=== PATIENT | female | born 1945 | race Caucasian/White ===

== ENCOUNTER → 2021-03-18 | Outpatient (CLI) | payer OTHER | LOC: HEART CORB 10:16 | DX: I25.10 Atherosclerotic heart disease of native coronary artery without angina pectoris (principal); R07.2 Precordial pain; E78.5 Hyperlipidemia, unspecified; I10 Essential (primary) hypertension; I25.2 Old myocardial infarction; E11.9 Type 2 diabetes mellitus without complications; M81.0 Age-related osteoporosis without current pathological fracture; I25.9 Chronic ischemic heart disease, unspecified; Z86.2 Personal history of diseases of the blood and blood-forming organs and certain disorders involving the immune mechanism; Z87.898 Personal history of other specified conditions | CPT/HCPCS: 78452; A9502; J2785 ==

== ENCOUNTER → 2021-04-24 | Outpatient (CLI) | payer OTHER ==
[2021-04-24 14:19] LABS: RED BLOOD COUNT 4.26 M/UL (4.00-5.10); WHITE BLOOD COUNT 8.7 K/UL (4.5-11.0)
[2021-04-25 11:13] LABS: CALCIUM, SERUM 9.8 mg/dL (8.7-10.3); CREATININE, SERUM 0.9 mg/dL (0.57-1.00)
== END ==
LOC: LAB 13:50
PROVIDERS: Internal Medicine Interventional Cardiology
DX: I25.119 Atherosclerotic heart disease of native coronary artery with unspecified angina pectoris (principal); I10 Essential (primary) hypertension; M81.0 Age-related osteoporosis without current pathological fracture; E11.9 Type 2 diabetes mellitus without complications; R00.2 Palpitations; R07.2 Precordial pain; R94.31 Abnormal electrocardiogram [ECG] [EKG]; R94.39 Abnormal result of other cardiovascular function study; E78.5 Hyperlipidemia, unspecified; I25.2 Old myocardial infarction; Z95.5 Presence of coronary angioplasty implant and graft
CPT/HCPCS: 36415; 80048; 85025; 85610; 85730; 93005

== ENCOUNTER → 2021-04-30 | Outpatient (CLI) | payer OTHER | LOC: HEART 5 09:00 | DX: R94.31 Abnormal electrocardiogram [ECG] [EKG] (principal); I25.118 Atherosclerotic heart disease of native coronary artery with other forms of angina pectoris; I08.1 Rheumatic disorders of both mitral and tricuspid valves | CPT/HCPCS: 93306 ==

== ENCOUNTER 2021-05-14 09:22 | Outpatient (CLI) | payer OTHER ==
[2021-05-14] MEDS ORDERED: ST. JOSEPH ASPI81 M1 PO (10:18)
[2021-05-14] MEDS ORDERED: ALENDRONATE SOD70 MG PO (10:18)
[2021-05-14] MEDS ORDERED: AMLODIPINE BES2.5 MG PO (10:18)
[2021-05-14] MEDS ORDERED: CARVEDILOL6.25 MG PO (10:19)
[2021-05-14] MEDS ORDERED: CALCIUM PO (10:19)
[2021-05-14] MEDS ORDERED: ISOSORBIDE MONO30 MG PO (10:19)
[2021-05-14] MEDS ORDERED: LISINOPRIL5 MG PO (10:20)
[2021-05-14] MEDS ORDERED: METFORMIN HCL500 MG PO (10:22)
[2021-05-14] MEDS ORDERED: CRESTOR40 MG PO (10:23)
[2021-05-14] MEDS ORDERED: OMEGA-31000 MG PO (10:23)
[2021-05-14] MEDS ORDERED: NITROSTAT 0.40.4 MG SL (10:23)
[2021-05-14] MEDS ORDERED: VITAMIN D21250 MCG PO (10:24)
[2021-05-14] MEDS ORDERED: VITAMIN B COMP1 EAC1 PO (10:24)
[2021-05-14 20:22] LABS: HEMOGLOBIN 13.3 gm/dl (12.3-15.3); RED BLOOD COUNT 4.36 M/UL (4.00-5.10); WHITE BLOOD COUNT 8.1 K/UL (4.5-11.0)
[2021-05-15 02:40] LABS: HEMOGLOBIN 13.3 gm/dl (12.3-15.3); RED BLOOD COUNT 4.3 M/UL (4.00-5.10); WHITE BLOOD COUNT 7.5 K/UL (4.5-11.0)
[2021-05-15 03:08] LABS: BUN/CREATININE RATIO 12 (0-10)
[2021-05-15] MEDS ORDERED: BRILINTA 90 MG90 MG PO (15:09)
== END 2021-05-15 16:40 | disposition home or self-care (01) ==
LOC: CANSCHCLI → CATH 09:22 → PROG CARE 15:17 → CATH 15:32 → PROG CARE 15:32 → CATH 05-15 16:40
PROVIDERS: Internal Medicine Interventional Cardiology
DX: I25.118 Atherosclerotic heart disease of native coronary artery with other forms of angina pectoris (principal); E78.5 Hyperlipidemia, unspecified; I10 Essential (primary) hypertension; E11.9 Type 2 diabetes mellitus without complications; Z95.5 Presence of coronary angioplasty implant and graft; I25.2 Old myocardial infarction; Z79.82 Long term (current) use of aspirin; Z79.84 Long term (current) use of oral hypoglycemic drugs; Z79.899 Other long term (current) drug therapy; Z20.822 Contact with and (suspected) exposure to COVID-19
CPT/HCPCS: 36415; 80048; 82550; 82553; 82962; 84484; 85025; 85347; 93005; 99152; 99153; C1725; C1769; C1874; C1887; C9600; J1644; J2250; J3010; J3246; J7030; J7040; Q9965